=== PATIENT | female | born 1985 | race American Indian/Alaskan Native ===

== ENCOUNTER 2020-03-02 11:26 | Emergency (ER) | payer SELFPAY ==
[2020-03-02 11:33] VITALS: BP 108/66
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
--- NOTE | 2020-03-02 12:14 | XRay Report ---
XR knee BILAT 3V INDICATION / CLINICAL INFORMATION: MAIN. COMPARISON: None available. FINDINGS: Right knee: No acute fracture or malalignment. There is no joint capsular distention. No focal soft t issue abnormality. Left knee: No acute fracture or malalignment. There is no joint capsular distention. No focal soft ti ssue abnormality. IMPRESSION: No acute abnormality of bilateral knees. Signer Name: Mo Kilgore MD Signed: 03/02/2020 12:10 PM Workstation Name: [id number]
== END 2020-03-02 15:10 | disposition home or self-care (01) ==
LOC: ED 11:26
DX: M25.562 Pain in left knee (principal)